=== PATIENT | female | born 1945 | race Caucasian/White ===

== ENCOUNTER 2017-11-29 09:24 | Day surgery (SDC) | payer MEDICARE, BC ==
--- NOTE | 2017-11-25 19:18 | HP ---
PREOPERATIVE HISTORY AND PHYSICAL EXAM: DATE OF ADMISSION/SURGERY: 11/29/17 [facility] ATTENDING SURGEON: Laurence Zimmerman MD * (DICTATED BY ALLYSON DANIEL) PROCEDURE: Open reduction and internal fixation, left wrist. HISTORY OF PRESENT ILLNESS: This is a 71-year-old female, who sustained injury to her left wrist on or around 11/10/17. She fell and landed on her outstretched left wrist. She did not initially get it evaluated. On 11/23/17, she went to [facility] and had an x-ray, which showed a displaced fracture of the distal radius. She has been wearing a Cock-Up wrist splint. She denies any associated numbness or tingling or other injury. After review of x-rays and examination by Dr. Zimmerman, the patient has consented to proceed with surgical intervention in the form of a left wrist open reduction and internal fixation. PAST MEDICAL HISTORY: 1. Hypertension. 2. GERD. 3. History of skin cancer. 4. History of ovarian cancer. 5. History of small bowel obstruction secondary to adhesions. PAST SURGICAL HISTORY: 1. Oophorectomy in 1993. 2. Cholecystectomy in 1993. 3. Bowel resection in 2004. 4. Bowel resection in 2014. 5. Hysterectomy. 6. Excision of skin cancer lesions. CURRENT MEDICATIONS: 1. Clobetasol cream p.r.n. 2. Amlodipine besylate 5 mg daily. 3. Estrace 0.1 mg/g use every day. 4. Irbesartan 300 mg daily. 5. Magnesium oxide 400 mg daily. 6. Omeprazole 20 mg daily. 7. PreviDent 5000 dry mouth 1.1% daily. 8. Tolterodine tartrate ER 4 mg daily. ALLERGIES: No known drug allergies. The patient has sensitivity to ADHESIVE TAPE. FAMILY MEDICAL HISTORY: Hypertension and cancer. 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 She denies tobacco use or recreational drug use. She drinks alcohol on rare occasion. REVIEW OF SYSTEMS: Negative for GI, , other musculoskeletal, integumentary, endocrine, neurologic, hematologic symptoms. Infectious disease is negative for MRSA, hepatitis C, HIV. PHYSICAL EXAMINATION GENERAL: Well-developed, well-nourished, 71-year-old female, in no acute distress. VITAL SIGNS: Height 5 feet 6 inches, weight 158 pounds. Pulse rate 96, blood pressure 162/88. HEENT: Normocephalic, atraumatic. Pupils are equal, round, and reactive to light and accommodation. Extraocular movements are intact. Throat is clear. NECK: Supple. No palpable lymph nodes. PULMONARY: Lungs are clear to auscultation bilaterally. No wheezes, rales, or rhonchi. CARDIOVASCULAR: Regular rate and rhythm. S1, S2. No murmurs, rubs, or gallops. No edema. ABDOMEN: Positive bowel sounds, soft, nontender. MUSCULOSKELETAL: On exam of the patient's left wrist, there is an obvious deformity with apex volar angulation of the distal radius. There is tenderness to the distal ulna. She can make a closed fist and fully extend her fingers. No visible swelling or ecchymosis. Skin is intact. Neurovascular function is intact. NEUROLOGICAL: Alert and oriented x3. Cranial nerves II through XII are intact. Sensation is intact to light touch. DIAGNOSTIC STUDIES: X-rays of the left wrist, AP, lateral and oblique show displaced fracture of the distal radius. IMPRESSION: Left distal radius fracture, which is angulated. PLAN: The patient is scheduled for an open reduction and internal fixation of the left wrist with Dr. Zimmerman, on 11/29/17. She will return to the office 10 days postop for followup and suture removal. A prescription for [place] was e- scribed to the patient's pharmacy for postoperative pain management. ALLYSON DANIEL [id number]/[facility] #: [id number] SHERINE
[~2017-11-29 09:24] MED LIST: Buffered Lidocaine 0.9% SYRIN* 5 ML/SYR SYRINGE INTRADERM ONE
[2017-11-29] MEDS ORDERED: ceFAZolin 2 GM PREMIX in ORs 2 GM/50 ML BAG IVPB ONE (09:37)
[2017-11-29] MEDS ORDERED: Scopolamine 1.5 mg* PATCH ONE (12:06)
[2017-11-29] MEDS ORDERED: Midazolam* 1 MG/ML 2 ML VIAL (2 MG) ONE (12:19)
[2017-11-29] MEDS ORDERED: Bupivacaine 0.5% W/EPI SDV* 30 ML VIAL ONE (12:19)
[2017-11-29] MEDS ORDERED: fentaNYL* 50 MCG/ML 2 ML VIAL (100 MCG VIAL) ONE (12:19)
[2017-11-29] MEDS ORDERED: Propofol* 10 MG/ML 20 ML BTL IV PUSH ONE (12:48)
[2017-11-29] MEDS ORDERED: Dexamethasone IV* 4 MG/ML 1 ML (4 MG) ONE (12:48)
[2017-11-29] MEDS ORDERED: Lidocaine 2% PF * 5 ML VIAL ONE (12:48)
[2017-11-29] MEDS ORDERED: Ondansetron INJ* 2 MG/ML VIAL ONE (12:48)
[2017-11-29 14:42] VITALS: BP 132/55
--- NOTE | 2017-11-30 03:00 | OP ---
DATE OF OPERATION: 11/29/17 [facility] DATE OF : 41 SURGEON: Laurence Zimmerman MD TOLL OPERATOR: ALLYSON Murrieta ANESTHESIA: General plus block. PRE-OP DIAGNOSIS: Left distal radius fracture, intraarticular. POST-OP DIAGNOSIS: Left distal radius fracture, intraarticular. OPERATIVE PROCEDURE: Open reduction internal fixation, left distal radius fracture. ESTIMATED BLOOD LOSS: Zero. TOURNIQUET TIME: About 45 minutes. INDICATIONS FOR PROCEDURE: Ness is a 71-year-old woman who fell and injured her left wrist. X-ray shows a very distal radius fracture, which is intraarticular at the distal radial ulnar joint. It is angulated and displaced and she presents for ORIF of the left distal radius. DESCRIPTION OF PROCEDURE: The patient was brought to the operating room, was given a block plus general anesthetic. Skin of her left upper extremity was prepped and draped in the usual sterile fashion. The hand and forearm were exsanguinated and the tourniquet elevated to 250 mmHg. A longitudinal incision was made over the FCR tendon. We dissected sharply through the superficial and deep portion of the FCR tendon sheath. The FPL muscle and tendon were retracted. Then, the pronator quadratus was incised and subperiosteally dissected off of the distal radius fracture fragments. The brachioradialis was released and then the fracture which had started to heal was manipulated and with a freer elevator reduced anatomically. He was secured with four distal and three proximal screws with a VA locking distal radius plate with the two intraarticular segments secured with the distal screws. The position of the hardware and fracture fragments were checked from the C-arm in the AP and lateral views and found to be satisfactory. The wound was irrigated. The pronator quadratus was repaired over the plate with 2-0 Vicryl suture. The FCR tendon sheath was repaired with 2-0 Vicryl suture and then the skin edges reapproximated with 4-0 nylon suture. The wound was dressed with Xeroform, 4x4 , Webril, and an Orthoplast splint on the volar aspect in slight flexion. The patient tolerated the procedure well and was brought to the recovery room in good condition. [id number]/[facility] #: [id number] [facility]
== END 2017-11-29 15:02 | disposition home or self-care (01) ==
LOC: OREAST 09:24
PROVIDERS: ATTEND Orthopaedic Surgery
DX: S52.572A Other intraarticular fracture of lower end of left radius, initial encounter for closed fracture (principal); G89.18 Other acute postprocedural pain; W19.XXXA Unspecified fall, initial encounter; Y92.9 Unspecified place or not applicable; I10 Essential (primary) hypertension; K21.9 Gastro-esophageal reflux disease without esophagitis; Z85.828 Personal history of other malignant neoplasm of skin; Z85.43 Personal history of malignant neoplasm of ovary
CPT/HCPCS: A9270-GY; C1713; C1776; J0690; J1100; J2250; J2405; J2704; J3010

== ENCOUNTER 2018-10-07 11:38 | Emergency (ER) | payer MEDICARE, BC ==
[2018-10-07 12:12] VITALS: BP 153/80
--- NOTE | 2018-10-07 12:32 | UC ---
UC General HPI - HPI Summary HPI Summary: 72-year-old woman comes in with chief complaint of feeling ill ever since September 19, 2018. She's had some blood work done with her primary care doctor. Been having intermittent upper abdominal pain. 3 days ago she had some nausea and vomiting and upper abdominal pain. It was better yesterday. Overnight she had upper abdominal pain and vomiting. Patient does have a history of small bowel obstructions she denies that this feels like a small bowel obstruction she has no abdominal pain at this time she is not nauseous at this time. She spoke with her primary care doctor on-call and the recommended repeating blood work that was done in the past CRP CBC CMP and to check for acute hepatitis. Patient is status post cholecystectomy in the past. - History of Current Complaint Chief Complaint: UCGeneralIllness Stated Complaint: NAUSEA VOMITING Time Seen by Provider: 10/07/18 12:20 Pain Intensity: 0 - Allergy/Home Medications Allergies/Adverse Reactions: Allergies Allergy/AdvReac Type Severity Reaction Status Date / Time belladonna alkaloids Allergy Mild Hives Verified 10/07/18 12:13 ADHESIVE TAPES Allergy Mild CONTACT Uncoded 10/07/18 12:13 DERMATITIS PMH/Surg Hx/FS Hx/Imm Hx Previously Healthy: Yes Cardiovascular History: Hypertension GI/ History: Gastroesophageal Reflux - Surgical History Surgical History: Yes Surgery Procedure, Year, and Place: HYSTERECTOMY, CHOLECYSTECOMY ,10 inches of sm. intestine removed-, BOWEL RESECTION 2004 - Family History Known Family History: Positive: Non-Contributory - Social History Alcohol Use: Rare Substance Use Type: None Smoking Status (MU): Never Smoked Tobacco Have You Smoked in the Last Year: No - Immunization History Most Recent Influenza Vaccination: 2013 Most Recent Tetanus Shot: 2009 Most Recent Pneumonia Vaccination: 2012 Review of Systems All Other Systems Reviewed And Are Negative: Yes Constitutional: Positive: Other - SEE HPI Skin: Positive: Negative Eyes: Positive: Negative ENT: Positive: Negative Respiratory: Positive: Negative Cardiovascular: Positive: Negative Gastrointestinal: Positive: Abdominal Pain, Vomiting, Nausea, Other - SEE HPI Genitourinary: Positive: Negative Motor: Positive: Negative Neurovascular: Positive: Negative Musculoskeletal: Positive: Negative Neurological: Positive: Negative Psychological: Positive: Negative Is Patient Immunocompromised?: No Physical Exam Triage Information Reviewed: Yes Appearance: Well-Appearing, No Pain Distress, Well-Nourished Vital Signs: Initial Vital Signs Temp 98 F 10/07/18 12:10 Pulse 100 10/07/18 12:10 Resp 20 10/07/18 12:10 BP 153/80 10/07/18 12:10 Pulse Ox 100 10/07/18 12:10 Vital Signs Reviewed: Yes Eye Exam: Normal Eyes: Positive: Conjunctiva Clear ENT: Negative: Muffled voice, Hoarse voice Neck: Positive: Supple Respiratory: Positive: Lungs clear, Normal breath sounds, No respiratory distress Cardiovascular: Positive: RRR Abdomen Description: Positive: Nontender, Soft. Negative: CVA Tenderness (R), CVA Tenderness (L) Bowel Sounds: Positive: Present Musculoskeletal: Positive: Strength Intact, ROM Intact Neurological: Positive: Alert Psychological: Positive: Age Appropriate Behavior Skin Exam: Normal Course/Dx - Course Course Of Treatment: At this time the patient has no abdominal pain her abdomen was nontender to palpation. At this time she has no signs of a bowel obstruction. She is not nauseous at this time. Patient reports that the primary care physician on-call recommended repeating prior blood work of a CRP CBC CMP and 2 check for hepatitis. All the blood work was drawn. Because the patient's asymptomatic at this time the plan will be to follow-up with her primary care doctor. I did let the patient know if she got worse with pain fever vomiting abdominal pain she needs to go the emergency department further evaluation and care. - Diagnoses Provider Diagnosis: Abdominal pain, Nausea & vomiting Discharge ED - Sign-Out/Discharge Documenting (check all that apply): Patient Departure All imaging exams completed and their final reports reviewed: No Studies - Discharge Plan Condition: Stable Disposition: HOME Prescriptions: Ondansetron ODT TAB* [Zofran 4 MG Odt TAB*] 4 mg PO Q6H PRN #15 tab.odt PRN Reason: Nausea Patient Education Materials: Acute Nausea and Vomiting (ED), Abdominal Pain (ED ) Referrals: Roya Fields MD [Primary Care Provider] - Additional Instructions: FOLLOW UP WITH YOUR DOCTOR IF NOT COMPLETELY IMPROVED. GO TO THE EMERGENCY DEPARTMENT IF YOUR CONDITION WORSENS; PAIN, FEVER, VOMITING , YOU FEEL ILL OR ANY QUESTIONS OR CONCERNS. - Billing Disposition and Condition Condition: STABLE Disposition: Home
[2018-10-07 14:38] LABS: ABS Lymphocytes 1.4 10^3/ul (1.0-4.8); ABS Monocytes 0.8 10^3/ul (0-0.8); ABS Neutrophils 9.3 10^3/ul (1.5-7.7); Eosinophil % 0.3 %; Hematocrit 37 % (35-47); Lymphocyte % 12.1 %; Mean Corpuscular HGB Conc 33 g/dL (31-36); Mean Corpuscular Hemoglobin 27 pg (27-31); Mean Corpuscular Volume 85 fL (80-97); Mean Platelet Volume 8.8 fL (7.4-10.4); Platelet Count 480 10^3/uL (150-450); Red Blood Count 4.37 10^6 /uL (3.70-4.87); Red Cell Distribution Width 13 % (10-15); White Blood Count 11.5 10^3/uL (3.5-10.8)
[2018-10-07 15:06] LABS: Albumin 3.7 g/dL (3.2-5.2); Calcium 9.2 mg/dL (8.6-10.3); Potassium 3.8 mmol/L (3.5-5.0); Total Bilirubin 0.4 mg/dL (0.2-1.0)
[2018-10-07 15:12] LABS: Albumin/Globulin Ratio 1.4 (1-3); BUN/Creatinine Ratio 27.5 (8-20); C Reactive Protein 16.82 mg/L (<8.01); EGFR African American 84.8 (>60); EGFR Non-African American 70.1 (>60); Globulin 2.6 g/dL (2-4); Total Protein 6.3 g/dL (6.4-8.9)
[2018-10-07 15:16] LABS: Hepatitis B Surface Antigen Negative (Negative)
[2018-10-07 15:34] LABS: Hepatitis C Antibody Negative (Negative)
--- NOTE | 2018-10-08 07:19 | UC ---
- Progress Note Progress Note: CBC with dif reviewed CMP reviewed mild elevation CRP at 16. Down from 29 on 09/28/18 Hepatitis panel neg and non reactive Pt to follow up with PCP per note No change blanca 10/08/18 Course/Dx - Diagnoses Provider Diagnoses: Abdominal pain, Nausea & vomiting Discharge ED - Sign-Out/Discharge Documenting (check all that apply): Post-Discharge Follow Up All imaging exams completed and their final reports reviewed: No Studies - Discharge Plan Condition: Stable Disposition: HOME Prescriptions: Ondansetron ODT TAB* [Zofran 4 MG Odt TAB*] 4 mg PO Q6H PRN #15 tab.odt PRN Reason: Nausea Patient Education Materials: Acute Nausea and Vomiting (ED), Abdominal Pain (ED ) Referrals: Roya Fields MD [Primary Care Provider] - Additional Instructions: FOLLOW UP WITH YOUR DOCTOR IF NOT COMPLETELY IMPROVED. GO TO THE EMERGENCY DEPARTMENT IF YOUR CONDITION WORSENS; PAIN, FEVER, VOMITING , YOU FEEL ILL OR ANY QUESTIONS OR CONCERNS. - Billing Disposition and Condition Condition: STABLE Disposition: Home
== END 2018-10-07 12:45 | disposition home or self-care (01) ==
LOC: UCEAST 11:38
DX: R11.2 Nausea with vomiting, unspecified (principal); R10.10 Upper abdominal pain, unspecified; I10 Essential (primary) hypertension; K21.9 Gastro-esophageal reflux disease without esophagitis
CPT/HCPCS: 36415; 80053; 80074; 85025; 86140; 99212; G0463

== ENCOUNTER 2018-10-10 13:04 | Inpatient (IN) | payer MEDICARE, BC ==
[2018-10-10 14:16] LABS: ABS Basophils 0.1 10^3/ul (0-0.2); ABS Lymphocytes 0.6 10^3/ul (1.0-4.8); ABS Monocytes 0.4 10^3/ul (0-0.8); ABS Neutrophils 14.2 10^3/ul (1.5-7.7); Hematocrit 38 % (35-47); Hemoglobin 12.5 g/dL (12.0-16.0); Lymphocyte % 3.8 %; Mean Corpuscular HGB Conc 33 g/dL (31-36); Mean Corpuscular Hemoglobin 28 pg (27-31); Mean Corpuscular Volume 84 fL (80-97); Mean Platelet Volume 8.3 fL (7.4-10.4); Platelet Count 463 10^3/uL (150-450); Red Blood Count 4.51 10^6 /uL (3.70-4.87); Red Cell Distribution Width 14 % (10-15); White Blood Count 15.4 10^3/uL (3.5-10.8)
[2018-10-10] MEDS ORDERED: NS 0.9% 1000 ML** 1,000 ML IV ONE (15:22)
--- NOTE | 2018-10-10 15:28 | ED ---
Abdominal Pain/Female - HPI Summary HPI Summary: Patient is a 72-year-old female who presents emergency department bowel obstruction seen in outpatient CT scan done today. Patient has a history of numerous surgeries and multiple bowel obstructions in the past. Patient states she's had surgery twice to lyse adhesions. Pt. notes that surgery was concerned in the past pt. may need to be seen at a tertiary facility if she has another bowel obstruction. Patient states she's been having abdominal pain and vomiting over the last week. She had an outpatient CT scan today which showed small bowel obstruction and new liver mass likely metastatic per radiology. Patient denies fever, chills, chest pain, shortness of breath. Symptoms are moderate in severity. Patient believes her last bowel movement was 3 days ago and is unaware if she is still passing flatus. No current modifying factors. - History of Current Complaint Chief Complaint: EDGeneral Stated Complaint: POSITIVE BOWEL OBSTRUCTION Time Seen by Provider: 10/10/18 13:38 Hx Obtained From: Patient, Family/Feed Grinder Pain Intensity: 0 Allergies/Adverse Reactions: Allergies Allergy/AdvReac Type Severity Reaction Status Date / Time belladonna alkaloids Allergy Mild Hives Verified 10/10/18 09:36 ADHESIVE TAPES Allergy Mild CONTACT Uncoded 10/10/18 09:36 DERMATITIS Home Medications: Home Medications L.acidoph,Paracasei, B.lactis [Probiotic] 1 each PO DAILY 10/10/18 [History Confirmed 10/10/18] Magnesium Oxide TAB* [MagOx 400 TAB*] 400 mg PO DAILY 10/10/18 [History Confirmed 10/10/18] [place]-3 Fatty Acids (Nf) [Fish Oil (NF)] 1,000 mg PO DAILY 10/10/18 [History Confirmed 10/10/18] PMH/Surg Hx/FS Hx/Imm Hx Previously Healthy: Yes Endocrine/Hematology History: Denies: Hx Diabetes Cardiovascular History: Reports: Hx Hypertension - ON MEDICATION FOR Denies: Hx Pacemaker/ICD GI History: Reports: Hx Gastroesophageal Reflux Disease - ON MEDICATION FOR, Hx Irritable Bowel, Other GI Disorders - HX OF SMALL INTESTINE BACTERIAL OVERGROWTH -TREATED WITH ANITBIOTIC-DIARRHEA History: Denies: Hx Dialysis, Hx Renal Disease - abnormal gfr Musculoskeletal History: Reports: Hx Arthritis - BACK AND HANDS, Hx Tendonitis - OCCASIONALLY IN ARMS Denies: Hx Osteoporosis Sensory History: Reports: Hx Cataracts - BILATERAL, Hx Contacts or Glasses - GLASSES, Other Sensory Impairments Denies: Hx Eye Injury, Hx Eye Prosthesis, Hx Glaucoma, Hx Legally Blind, Hx Macular Degeneration, Hx Vision Problem, Hx Deafness, Hx Hearing Aid, Hx Hearing Problem Opthamlomology History: Reports: Hx Cataracts - BILATERAL, Hx Contacts or Glasses - GLASSES, Other Sensory Impairments Denies: Hx Eye Injury, Hx Eye Prosthesis, Hx Glaucoma, Hx Legally Blind, Hx Macular Degeneration, Hx Vision Problem Neurological History: Reports: Hx Migraine - RARE-TYLENOL- STATES NOW USUALLY JUST AN AURA- LAST ONLY ~20 MIN Psychiatric History: Denies: Hx Panic Disorder - Cancer History Cancer Type, Location and Year: ovarian, slow groing non invasive Hx Chemotherapy: No Hx Radiation Therapy: No - Surgical History Surgery Procedure, Year, and Place: HYSTERECTOMY, CHOLECYSTECOMY ,10 inches of sm. intestine removed-, BOWEL RESECTION 2004 Hx Anesthesia Reactions: No Infectious Disease History: No Infectious Disease History: Denies: Traveled Outside the [place] in Last 30 Days - Family History Known Family History: Positive: Non-Contributory - Social History Occupation: Retired Lives: With Family Alcohol Use: Rare Substance Use Type: Reports: None Smoking Status (MU): Never Smoked Tobacco Have You Smoked in the Last Year: No Review of Systems Constitutional: Negative Negative: Fever Cardiovascular: Negative Respiratory: Negative Positive: Abdominal Pain, Vomiting, Nausea Genitourinary: Negative Neurological: Negative All Other Systems Reviewed And Are Negative: Yes Physical Exam Triage Information Reviewed: Yes Vital Signs On Initial Exam: Initial Vitals Temp Pulse Resp BP Pulse Ox 97.6 F 79 18 162/90 96 10/10/18 13:10 10/10/18 13:10 10/10/18 13:10 10/10/18 13:10 10/10/18 13:10 Vital Signs Reviewed: Yes Appearance: Positive: Well-Appearing - Pt. sitting up in bed in NAD. Family member present. Skin: Positive: Warm, Dry Head/Face: Positive: Normal Head/Face Inspection Eyes: Positive: Normal, EOMI Neck: Positive: Supple Respiratory/Lung Sounds: Positive: Clear to Auscultation, Breath Sounds Present Cardiovascular: Positive: Normal, RRR Diagnostics - Vital Signs Vital Signs Temp Pulse Resp BP Pulse Ox 10/10/18 14:42 82 134/75 96 10/10/18 14:12 79 138/72 96 10/10/18 14:00 79 96 10/10/18 13:42 82 136/72 95 10/10/18 13:13 84 97 10/10/18 13:12 86 162/90 97 10/10/18 13:10 97.6 F 79 18 162/90 96 - Laboratory Lab Results: Lab Results 10/10/18 Range/Units 14:02 WBC 15.4 H (3.5-10.8) 10^3/uL RBC 4.51 (3.70-4.87) 10^6 /uL Hgb 12.5 (12.0-16.0) g/dL Hct 38 (35-47) % MCV 84 (80-97) fL MCH 28 (27-31) pg MCHC 33 (31-36) g/dL RDW 14 (10-15) % Plt Count 463 H (150-450) 10^3/uL MPV 8.3 (7.4-10.4) fL Neut % (Auto) 92.7 % Lymph % (Auto) 3.8 % [place] % (Auto) 2.6 % Eos % (Auto) 0.0 % Baso % (Auto) 0.9 % Absolute Neuts (auto) 14.2 H (1.5-7.7) 10^3/ul Absolute Lymphs (auto) 0.6 L (1.0-4.8) 10^3/ul Absolute Monos (auto) 0.4 (0-0.8) 10^3/ul Absolute Eos (auto) 0.0 (0-0.6) 10^3/ul Absolute Basos (auto) 0.1 (0-0.2) 10^3/ul Absolute Nucleated RBC 0.0 10^3/ul Nucleated RBC % 0.0 Result Diagrams: 10/10/18 14:02 10/10/18 14:02 Lab Statement: Any lab studies that have been ordered have been reviewed, and results considered in the medical decision making process. Abdominal Pain Fem Course/Dx - Course Course Of Treatment: Pt. presenting with SBO seen on outpt. CT scan. She is afebrile with stable VS. Pt. denies need for antiemetics or pain medication. CT per radiology: IMPRESSION: Large mass in the left lobe of liver suspicious for metastatic disease. Dilated stomach and proximal small bowel consistent with small bowel obstruction with. suggestion of a zone of transition at the anastomosis in the pelvis from prior surgery. Serosal lesions are not excluded. Right adrenal lesion is unchanged from previous exam. Labs shows leukocytosis. Case discussed with Dr. Holcomb who recommends starting with conservative tx with bowel rest and IV hydration. Surgery aware of case and can be consulted if needed. Case discussed with Dr. Velez and she accepts pt. to her service. - Diagnoses Differential Diagnosis: Positive: Bowel Obstruction Provider Diagnoses: Small bowel obstruction, Liver mass Discharge ED - Sign-Out/Discharge Documenting (check all that apply): Patient Departure Patient Received Moderate/Deep Sedation with Procedure: No - Discharge Plan Condition: Stable Disposition: ADMITTED TO [facility] Referrals: Roya Fields MD [Primary Care Provider] - - Billing Disposition and Condition Condition: STABLE Disposition: Admitted to [facility]
[2018-10-10 15:30] LABS: Albumin 3.7 g/dL (3.2-5.2); Albumin/Globulin Ratio 1.3 (1-3); BUN/Creatinine Ratio 30.8 (8-20); C Reactive Protein 9.1 mg/L (<8.01); EGFR African American 87.4 (>60); EGFR Non-African American 72.2 (>60); Globulin 2.8 g/dL (2-4); Magnesium 1.8 mg/dL (1.9-2.7); Potassium 3.6 mmol/L (3.5-5.0); Total Bilirubin 0.3 mg/dL (0.2-1.0); Total Protein 6.5 g/dL (6.4-8.9)
[2018-10-10] MEDS ORDERED: Lidocaine 2% VISCOUS* 15 ML UDC SWISH SPIT ONE (16:57)
[2018-10-10] MEDS ORDERED: hydrALAZINE IV* 20 MG/ML VIAL IV SLOW PU PRN (17:20)
[2018-10-10 17:21] LABS: Urine Appearance Clear; Urine Bacteria Absent (Absent); Urine Bilirubin Negative (Negative); Urine Blood Negative (Negative); Urine Color Yellow; Urine Glucose Negative (Negative); Urine Ketones 2+ (Negative); Urine Nitrite Negative (Negative); Urine Protein 1+(30 mg/dL) (Negative); Urine Red Blood Cell Absent (Absent); Urine Specific Gravity > 1.060 (1.010-1.030); Urine Squamous Epithelial Cell Present (Absent); Urine Urobilinogen Negative (Negative); Urine White Blood Cell Absent (Absent)
--- NOTE | 2018-10-10 19:30 | HP ---
CC: Dr. Fields* [facility] MEDICINE HISTORY AND PHYSICAL: DATE OF ADMISSION: 10/10/18 PRIMARY CARE PHYSICIAN: Dr. Fields. ATTENDING PHYSICIAN: Dr. Aruna Velez* (dictation provided by Di Diallo NP). CHIEF COMPLAINT: Nausea, vomiting, and abdominal pain. HISTORY OF PRESENT ILLNESS: Ms. Diaz is a 72-year-old female with a past medical history of ovarian/bowel cancer cancer (serous psammoma carcinoma) and multiple small bowel obstructions, status post resections and lysis of adhesions , who presents today to the hospital with concern for abdominal pain, nausea, and vomiting. Ms. Diza states that she was in her normal state of health up until 09/19/18, at which time she developed a low-grade fever with loss of appetite and energy. She recovered over the next week and then felt essentially back to baseline except for having some upper abdominal discomfort. She thought perhaps this was related to IBS, although her symptoms had been well controlled for quite some time. She followed up with her primary care physician, Dr. Fields about a week and a half ago after having sudden onset of vomiting. She had labs drawn at that time on 09/28/18, which showed no significant abnormality. She continued to have some intermittent vomiting mixed with days where she was feeling much better. On Tuesday, she again had more significant vomiting and was feeling unwell; therefore, she spoke to Dr. Novoa, who is a partner with her primary care physician and ultimately she ended up having labs drawn again on 10/07/18. Again, these showed no significant abnormality. The plan over the weekend was for the patient to have a CT abdomen and pelvis arranged for Tuesday as Tuesday was a holiday. The patient had the scan this morning and unfortunately it revealed that she has a large liver mass suspected to be a metastasis as well as a small bowel obstruction at the site of her anastomosis. She was therefore sent to the emergency room for evaluation. In the emergency room, Ms. Diaz had labs which showed white blood cell count elevated to 15.4; however, her CRP is only 9.10. Her BUN and creatinine are essentially normal. Urine shows no evidence of infection. The patient is nauseous and vomiting at times, but is otherwise resting comfortably. PAST MEDICAL HISTORY: 1. History of small bowel obstructions with lysis of adhesions. 2. 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 Hypertension. 3. GERD. 4. History of IBS. 5. SIBO. PAST SURGICAL HISTORY: History of total hysterectomy, bilateral salpingo- oophorectomy in 1993; history of bowel resection and lysis of adhesions in 2004 with finding of a serous psammoma carcinoma, followed by Dr. Holcomb. MEDICATIONS: 1. Amlodipine 7.5 mg p.o. q.a.m. 2. Irbesartan 300 mg p.o. q.a.m. 3. Probiotic 1 each p.o. daily. 4. Magnesium oxide 400 mg p.o. daily. 5. Multivitamin with minerals 1 each p.o. q.a.m. 6. [place]-3 krill oil tabs 1000 mg p.o. daily. 7. Omeprazole 20 to 40 mg p.o. q.a.m. 8. Tolterodine 4 mg p.o. q.a.m. ALLERGIES: BELLADONNA and ADHESIVE TAPES. FAMILY HISTORY: The patient's mother related to ovarian cancer. Father related to lung cancer. SOCIAL HISTORY: No report of alcohol, tobacco, or drug use. The patient states that her nephews Hi and Raudel would be her healthcare proxies. REVIEW OF SYSTEMS: A 14-point review of systems was completed with Ms. Diaz and all those not mentioned above were negative. PHYSICAL EXAMINATION GENERAL: Ms. Diaz is lying in the bed with family at the bedside. She is in no acute distress. VITAL SIGNS: Temperature 97.8, pulse rate 89, respiratory rate 18, O2 saturation 97% on room air, blood pressure 171/79. LUNGS: Clear to auscultation bilaterally with no accessory muscle use and good aeration. HEART: S1, S2. No murmur, rub or gallop, and regular. ABDOMEN: Soft. There is some mild tenderness in the right upper quadrant. There is no rebound or guarding. Bowel sounds are positive. Not able to appreciate hepatomegaly or splenomegaly on exam. EXTREMITIES: No cyanosis or edema. NEURO: She is alert. She is oriented x3. She moves all extremities equally. There is no facial asymmetry or focal weakness. Extraocular movements are intact. SKIN: Intact. DIAGNOSTIC STUDIES/LAB DATA: WBC 15.4, hemoglobin 12.5, hematocrit 38, platelet count 463. Sodium 137, potassium 3.6, chloride 100, serum bicarbonate 24, BUN 24, creatinine 0.78, glucose 112. CRP 9.10. Urine shows no evidence of infection. CT abdomen and pelvis is as follows: Large mass in the left lobe of the liver suspicious for metastatic disease measuring 4.8 cm in length x 8.3 cm in width and 3.4 cm in AP dimension, dilated stomach and proximal small bowel consistent with small bowel obstruction with suggested zone of transition at the anastomosis in the pelvis from prior surgery. Serosal lesions are not excluded. ASSESSMENT AND PLAN: Ms. Diaz is a 72-year-old female with a past medical history of serous psammoma carcinoma, status post bowel resection with a previous history of hysterectomy and bilateral salpingo-oophorectomy in 1993, who presents to the hospital today with concern for a small bowel obstruction and a new liver mass. Our plans are for observation in the hospital for the followin. Small bowel obstruction: It appears that the patient has a zone of transition at a previous site of anastomosis. The surgeons have been consulted , and Dr. Damon and his team will be seeing the patient. At this time, her exam is benign other than she has persistent nausea and vomiting. We have discussed with her the potential use of an NG tube, but based on her previous experience with that intervention, she has declined today. She is aware that this is something we would recommend given her nausea and vomiting, but she prefers to avoid that if possible. In the meantime, she will have Zofran available p.r.n. I suspect that her obstruction is related to her previous history of similar obstructions with adhesions and surgeries. She will be n.p.o. She will have IV fluids. 2. Liver mass. I have left a message for Dr. Holcomb, who has been asked to review the case and offer recommendations tomorrow. The patient had a CT abdomen in December of this past year, which did not demonstrate any lesion in the liver. She denies any pain at this point but has had pain in recent weeks. Her liver enzymes are normal. Other etiologies could be liver abscess, but she shows no significant inflammatory markers, she is afebrile and though her white blood cell count is elevated, her CRP is normal. Anticipate the patient would need a biopsy, but question whether or not that would be done during this hospitalization or outpatient and this can be reviewed with Dr. Holcomb. 3. Hypertension. The patient's blood pressure has been elevated in the ED. She will have hydralazine available p.r.n. and depending on clinical course, we can add other agents as need be while she is n.p.o. We will be holding her irbesartan and amlodipine. 4. Gastroesophageal reflux disease. Hold omeprazole. She will have pantoprazole available IV. 5. Code status is full code. 6. Leukocytosis. I suspect this is secondary to inflammation related to her small bowel obstruction given that her CRP is normal and she is afebrile, but we will recheck labs in the a.m. 7. Disposition: To the medical floor. TIME SPENT: Approximately 60 minutes was spent on the admission of this patient , more than half the time spent with her at the bedside reviewing the events leading up to this hospitalization, performing the physical examination, and reviewing the plan of care. DI DIALLO NP [id number]/[facility] #: [id number] SHERINE
[2018-10-10] MEDS: NS 0.9% 1000 ML** 1,000 ML IV SCH (19:44)
[2018-10-10] MEDS: Heparin VIAL(*) 5000 UNITS/ML VIAL (FIVE THOUSAND) SUBCUT SCH (22:03)
[2018-10-11] MEDS: NS 0.9% 1000 ML** 1,000 ML IV SCH ×3 (03:35→21:39)
[2018-10-11 05:01] LABS: ABS Eosinophils 0.1 10^3/ul (0-0.6); ABS Lymphocytes 1.6 10^3/ul (1.0-4.8); ABS Neutrophils 12.7 10^3/ul (1.5-7.7); Eosinophil % 0.3 %; Hematocrit 33 % (35-47); Hemoglobin 10.9 g/dL (12.0-16.0); Lymphocyte % 10.4 %; Mean Corpuscular HGB Conc 33 g/dL (31-36); Mean Corpuscular Hemoglobin 27 pg (27-31); Mean Corpuscular Volume 84 fL (80-97); Mean Platelet Volume 8.2 fL (7.4-10.4); Platelet Count 358 10^3/uL (150-450); Red Blood Count 3.98 10^6 /uL (3.70-4.87); Red Cell Distribution Width 13 % (10-15); White Blood Count 15.4 10^3/uL (3.5-10.8)
[2018-10-11] MEDS: Ondansetron INJ* 2 MG/ML VIAL IV PRN ×3 (05:06→22:33)
[2018-10-11 05:15] LABS: BUN/Creatinine Ratio 24.7 (8-20); Calcium 8.4 mg/dL (8.6-10.3); EGFR African American 94.3 (>60); EGFR Non-African American 77.9 (>60); Potassium 3.6 mmol/L (3.5-5.0)
[2018-10-11] MEDS: Heparin VIAL(*) 5000 UNITS/ML VIAL (FIVE THOUSAND) SUBCUT SCH ×3 (05:15→22:35)
[2018-10-11] MEDS: Pantoprazole IV* 40 MG IV SCH (08:55)
--- NOTE | 2018-10-11 12:21 | CONS ---
CC: Dr. Damon at [facility].* SURGICAL CONSULTATION: DATE OF ADMISSION: 10/10/18 DATE OF CONSULT: 10/11/18 ATTENDING PHYSICIAN: Hospitalist Service. LOCATION: This patient was seen at [facility] in room 413 on 10/11/18. PRIMARY CARE PHYSICIAN: Dr. Roya Fields. CHIEF COMPLAINT: Nausea, vomiting, and abdominal pain. HISTORY OF PRESENT ILLNESS: The patient is a 72-year-old female with a past medical history of ovarian and bowel cancer, specifically serous psammoma carcinoma; she has had multiple small bowel obstructions and is status post small bowel resection and lysis of adhesions in 2004 with the finding of the serous psammoma carcinoma at that time and she has been followed by Dr. Holcomb. She reports that she was in her normal state of health until mid September, at which time she developed a low-grade fever with loss of appetite and energy. Over the next week, she started to feel better, but then developed upper abdominal discomfort and had a sudden onset of vomiting. She had labs drawn at that time as ordered by her primary care physician, which showed no significant abnormality. She continued to have intermittent vomiting mixed with days where she was feeling better. On this past Tuesday, she again had more significant vomiting and was feeling unwell and again spoke to her primary care office and ultimately had labs drawn again on , which showed no significant abnormality. The plan was for a CAT scan of the abdomen and pelvis for Tuesday10/10/18. The CAT scan revealed a large liver mass suspected to be a metastasis as well as a small bowel obstruction at the site of her previous anastomosis. In the emergency room, her white blood cell count was elevated at 15.4; however, her CRP was only 9.10. BUN and creatinine were essentially normal and urine showed no evidence of infection. The patient was admitted to the hospitalist service and kept n.p.o.; the patient declined a nasogastric tube. She was maintained on IV fluids and Dr. Holcomb was informed of the patient 's admission. Overnight, she states that she has been feeling better. She has had no further vomiting, she has felt mildly queasy and occasionally used Zofran. She thinks that she passed a little flatus this morning and has been ambulating in the halls. Her white blood cell count again this morning is 15.4. She is afebrile and denies any chills. PAST MEDICAL HISTORY: Small bowel obstructions with lysis of adhesions; serous psammoma carcinoma followed by Dr. Holcomb; hypertension; GERD; irritable bowel syndrome. PAST SURGICAL HISTORY: Total hysterectomy, bilateral salpingo-oophorectomy 1993 , small bowel resection and lysis of adhesions in 2004 with finding of serous psammoma carcinoma. MEDICATIONS: 1. Amlodipine 7.5 mg p.o. daily in the morning. 2. Irbesartan 300 mg p.o. daily in the morning. 3. Probiotic 1 daily. 4. Magnesium oxide 400 mg daily. 5. Multivitamin with minerals 1 tablet daily. 6. [place]-3 krill oil tablets 1000 mg p.o. daily. 7. Omeprazole 20 to 40 mg p.o. daily in the morning. 8. Tolterodine 4 mg p.o. daily in the morning. ALLERGIES: BELLADONNA and ADHESIVE TAPES. FAMILY HISTORY: Mother related to ovarian cancer. Father related to lung cancer. SOCIAL HISTORY: She lives alone; she denies the use of alcohol, tobacco, or substances. REVIEW OF SYSTEMS: Constitutional: Starting in mid September, she developed a low - grade fever associated with fatigue. No current fever or chills. Respiratory : No shortness of breath or chronic cough. Cardiovascular: No anginal chest pain or palpitations. Gastrointestinal: As described in history of present illness. Genitourinary: No dysuria. Endocrine: No diabetes or thyroid disease. Musculoskeletal: Normal strength and tone. Neurologic: No headache or blurred vision or areas of focal weakness or numbness. PHYSICAL EXAM: General: The patient is resting in bed comfortably. She is in no acute distress. Vital Signs: Temperature 98.1, heart rate 80, respiratory rate 18, O2 saturation 97%, blood pressure 129/60. Physical exam was limited to the abdomen. Well healed midline surgical scar; bowel sounds are hyperactive in the lower quadrants. The abdomen is soft and nondistended. There is mild tenderness in the suprapubic region. No guarding or rebound tenderness. No Santillan's sign. No obvious organomegaly or mass effect on exam. IMPRESSION: The patient is a 72-year-old female with findings on the CAT scan of the abdomen and pelvis as follows: Large mass in the left lobe of the liver suspicious for metastatic disease, measuring 4.8 cm x 8.3 cm x 3.4 cm, dilated stomach and proximal small bowel consistent with small bowel obstruction with suggested zone of transition at the anastomosis in the pelvis from prior surgery. At this time, she denies any abdominal pain. She is no longer vomiting and is passing a small amount of flatus. She states that Dr. Holcomb saw her last evening and advises an ultrasound-guided needle biopsy of the liver mass. She will continue to be n.p.o. and receive IV fluids. In terms of followup on the small bowel obstruction, Dr. Damon stated that if surgery is required she would need to be transferred. I will update Dr. Damon and discuss the case with the hospitalist who is seeing the patient today. TIME SPENT: Approximately 60 minutes, more than half that time spent at the bedside reviewing the events leading up to this hospitalization, performing the physical examination and reviewing the plan of care. JUAN TOMLINSON NP [id number]/[facility] #: [id number] MTDAurelia
--- NOTE | 2018-10-11 14:43 | PN ---
Subjective Date of Service: 10/11/18 Interval History: Patient is feeling better. Patient passed flatus this AM. Patient has been ambulating. Patient has persistent mild abdominal pain. Patient denies CP, SOB, dizziness, dysuria, or other pain. Family History: Unchanged from Admission Social History: Unchanged from Admission Past Medical History: Unchanged from Admission Objective Active Medications: Heparin Sodium (Porcine) (Heparin Vial(*)) 5,000 units SUBCUT Q8HR [facility] Last Admin: 10/11/18 05:15 Dose: 5,000 units Hydralazine HCl (Apresoline Iv*) 5 mg IV SLOW PU Q6H PRN PRN Reason: SBP>180 Sodium Chloride (Ns 0.9% 1000 Ml) 1,000 mls @ 125 mls/hr IV PER RATE [facility] Last Admin: 10/11/18 11:35 Dose: 125 mls/hr Ondansetron HCl (Zofran Inj*) 4 mg IV Q4H PRN PRN Reason: NAUSEA/VOMITING Last Admin: 10/11/18 05:06 Dose: 4 mg Pantoprazole Sodium (Protonix Iv*) 40 mg IV DAILY [facility] Last Admin: 10/11/18 08:55 Dose: 40 mg Vital Signs - 8 hr 10/11/18 10/11/18 10/11/18 07:15 11:15 14:14 Temperature 98.1 F 98.7 F 98.7 F Pulse Rate 81 74 77 Respiratory 18 20 19 Rate Blood Pressure 129/60 133/58 159/65 (mmHg) O2 Sat by Pulse 97 96 97 Oximetry Oxygen Devices in Use Now: None Appearance: Patient is a 72yo female who appears stated age and is sitting in the bed in [facility]. Eyes: No Scleral Icterus, PERRLA Ears/Nose/Mouth/Throat: NL Teeth, Lips, Gums, Clear Oropharnyx, Mucous Membranes Moist Neck: NL Appearance and Movements; NL JVP, Trachea Midline Respiratory: Symmetrical Chest Expansion and Respiratory Effort, Clear to Auscultation Cardiovascular: NL Sounds; No Murmurs; No JVD, RRR, No Edema Abdominal: No Hepatosplenomegaly, - - Hypoactive BS, No tenderness. Lymphatic: No Cervical Adenopathy Extremities: No Edema, No Clubbing, Cyanosis Skin: No Rash or Ulcers, No Nodules or Sclerosis Neurological: Alert and Oriented x 3, NL Sensation, NL Muscle Strength and Tone , - - CN II-XII intact. Result Diagrams: 10/11/18 04:38 10/11/18 04:38 Additional Lab and Data: Lab Results Assess/Plan/Problems-Billing Assessment: Patient is a 72yo female with a PMH for ovarian tumor, SBO, HTN, here with recurrent SBO. Patient is passing gas and improving. - Patient Problems (1) SBO (small bowel obstruction) Current Visit: No Status: Acute Code(s): K56.69 - OTHER INTESTINAL OBSTRUCTION * DO NOT USE * SNOMED Code(s): 077078643 Comment: - Improving, conservative management - Still having nausea. Do not advance diet yet - Appreciate Surgical consult - Fluids and zofran. (2) Liver mass Current Visit: Yes Status: Acute Code(s): R16.0 - HEPATOMEGALY, NOT ELSEWHERE CLASSIFIED SNOMED Code(s): 509850034 Comment: - New diagnosis, possible metastatic disease, biopsy pending - History rare ovarian tumor. - Appreciate Oncology input. (3) GERD (gastroesophageal reflux disease) Current Visit: No Status: Acute Code(s): K21.9 - GASTRO-ESOPHAGEAL REFLUX DISEASE WITHOUT ESOPHAGITIS SNOMED Code(s): 164426349 Comment: - Continue pantoprazole IV while NPO (4) Hypertension Current Visit: No Status: Acute Code(s): I10 - ESSENTIAL (PRIMARY) HYPERTENSION SNOMED Code(s): 49370091 Comment: - PRN hydralazine while NPO - Generally elevated BP, resume amlodipine when able. (5) DVT prophylaxis Current Visit: No Status: Acute Code(s): IDP4985 - SNOMED Code(s): 219319650 Comment: - Heparin SQ (6) Full code status Current Visit: No Status: Acute Code(s): Z78.9 - OTHER SPECIFIED HEALTH STATUS SNOMED Code(s): 012736366
[2018-10-12] MEDS: Ondansetron INJ* 2 MG/ML VIAL IV PRN (03:24)
[2018-10-12] MEDS ORDERED: Metoclopramide IV* 5 MG/ML 2 ML VIAL IV PRN (05:56)
[2018-10-12] MEDS: Heparin VIAL(*) 5000 UNITS/ML VIAL (FIVE THOUSAND) SUBCUT SCH ×3 (07:19→22:33)
[2018-10-12 07:23] LABS: ABS Lymphocytes 1.3 10^3/ul (1.0-4.8); ABS Monocytes 0.7 10^3/ul (0-0.8); ABS Neutrophils 10.7 10^3/ul (1.5-7.7); Eosinophil % 0.4 %; Hematocrit 33 % (35-47); Mean Corpuscular HGB Conc 33 g/dL (31-36); Mean Corpuscular Hemoglobin 28 pg (27-31); Mean Corpuscular Volume 84 fL (80-97); Mean Platelet Volume 8.5 fL (7.4-10.4); Platelet Count 343 10^3/uL (150-450); Red Blood Count 3.95 10^6 /uL (3.70-4.87); Red Cell Distribution Width 14 % (10-15); White Blood Count 12.7 10^3/uL (3.5-10.8)
[2018-10-12 07:33] LABS: BUN/Creatinine Ratio 19.7 (8-20); Calcium 8.1 mg/dL (8.6-10.3); EGFR African American 105.9 (>60); EGFR Non-African American 87.5 (>60); Magnesium 1.7 mg/dL (1.9-2.7); Potassium 3.5 mmol/L (3.5-5.0)
[2018-10-12] MEDS: Pantoprazole IV* 40 MG IV SCH (09:58)
[2018-10-12] MEDS: NS 0.9% 1000 ML** 1,000 ML IV SCH (14:28)
--- NOTE | 2018-10-12 17:30 | PN ---
Subjective Date of Service: 10/12/18 Interval History: Patient is feeling better today. Patient has been passing gas and had one BM. Patient had nausea overnight, but that is now resolved and she denies abdominal pain. Patient denies F/C, CP, SOB, dysuria, dizziness, or other pain. Family History: Unchanged from Admission Social History: Unchanged from Admission Past Medical History: Unchanged from Admission Objective Active Medications: Heparin Sodium (Porcine) (Heparin Vial(*)) 5,000 units SUBCUT Q8HR [facility] Last Admin: 10/12/18 14:28 Dose: 5,000 units Hydralazine HCl (Apresoline Iv*) 5 mg IV SLOW PU Q6H PRN PRN Reason: SBP>180 Sodium Chloride (Ns 0.9% 1000 Ml) 1,000 mls @ 125 mls/hr IV PER RATE [facility] Last Admin: 10/12/18 14:28 Dose: 125 mls/hr Metoclopramide HCl (Reglan Iv*) 10 mg IV Q6H PRN PRN Reason: NAUSEA/VOMITING Last Admin: 10/12/18 07:19 Dose: 10 mg Ondansetron HCl (Zofran Inj*) 4 mg IV Q4H PRN PRN Reason: NAUSEA/VOMITING Last Admin: 10/12/18 03:24 Dose: 4 mg Pantoprazole Sodium (Protonix Iv*) 40 mg IV DAILY [facility] Last Admin: 10/12/18 09:58 Dose: 40 mg Vital Signs - 8 hr 10/12/18 10/12/18 10:35 15:45 Temperature 98.4 F 98.4 F Pulse Rate 73 75 Respiratory 16 18 Rate Blood Pressure 130/59 151/68 (mmHg) O2 Sat by Pulse 98 99 Oximetry Oxygen Devices in Use Now: None Appearance: Patient is a 72yo female who appears stated age and is sitting in the bed in [facility]. Eyes: No Scleral Icterus, PERRLA Ears/Nose/Mouth/Throat: NL Teeth, Lips, Gums, Clear Oropharnyx, Mucous Membranes Moist Neck: NL Appearance and Movements; NL JVP, Trachea Midline Respiratory: Symmetrical Chest Expansion and Respiratory Effort, Clear to Auscultation Cardiovascular: NL Sounds; No Murmurs; No JVD, RRR, No Edema Abdominal: No Hepatosplenomegaly, - - Hypoactive bowel sounds. Lymphatic: No Cervical Adenopathy Extremities: No Edema, No Clubbing, Cyanosis Skin: No Rash or Ulcers, No Nodules or Sclerosis Neurological: Alert and Oriented x 3, NL Sensation, NL Muscle Strength and Tone , - - CN II-XII intact. Result Diagrams: 10/12/18 06:59 10/12/18 06:59 Additional Lab and Data: Lab Results Assess/Plan/Problems-Billing Assessment: Patient is a 72yo female with a PMH for ovarian tumor, SBO, HTN, here with recurrent SBO. Patient is passing gas and improving. - Patient Problems (1) SBO (small bowel obstruction) Current Visit: No Status: Acute Code(s): K56.69 - OTHER INTESTINAL OBSTRUCTION * DO NOT USE * SNOMED Code(s): 164890752 Comment: - Improving, conservative management - Nausea improved, Advance to clears. - Appreciate Surgical consult - Fluids and zofran. (2) Liver mass Current Visit: Yes Status: Acute Code(s): R16.0 - HEPATOMEGALY, NOT ELSEWHERE CLASSIFIED SNOMED Code(s): 670890835 Comment: - New diagnosis, possible metastatic disease, biopsy pending - History rare ovarian tumor. - Appreciate Oncology input. (3) GERD (gastroesophageal reflux disease) Current Visit: No Status: Acute Code(s): K21.9 - GASTRO-ESOPHAGEAL REFLUX DISEASE WITHOUT ESOPHAGITIS SNOMED Code(s): 882081521 Comment: - Continue pantoprazole IV while NPO, change to PO tomorrow if tolerating PO (4) Hypertension Current Visit: No Status: Acute Code(s): I10 - ESSENTIAL (PRIMARY) HYPERTENSION SNOMED Code(s): 55112947 Comment: - PRN hydralazine while NPO - Generally elevated BP, resume amlodipine when able. (5) DVT prophylaxis Current Visit: No Status: Acute Code(s): TSQ2790 - SNOMED Code(s): 494446628 Comment: - Heparin SQ (6) Full code status Current Visit: No Status: Acute Code(s): Z78.9 - OTHER SPECIFIED HEALTH STATUS SNOMED Code(s): 046727451 Status and Disposition: Inpatient, slow improvement, discharge when tolerating diet.
[2018-10-12] MEDS ORDERED: Magnesium Sulfate 2 GM IV* 2 GM/50 ML BAG IVPB ONE (18:00)
[2018-10-13] MEDS: NS 0.9% 1000 ML** 1,000 ML IV SCH ×4 (00:30→21:15)
[2018-10-13] MEDS: Ondansetron INJ* 2 MG/ML VIAL IV PRN ×2 (01:29→07:00)
[2018-10-13 06:33] LABS: ABS Eosinophils 0.1 10^3/ul (0-0.6); ABS Lymphocytes 1.2 10^3/ul (1.0-4.8); ABS Monocytes 0.7 10^3/ul (0-0.8); ABS Neutrophils 9.5 10^3/ul (1.5-7.7); Eosinophil % 1.1 %; Hematocrit 32 % (35-47); Hemoglobin 10.8 g/dL (12.0-16.0); Lymphocyte % 10.7 %; Mean Corpuscular HGB Conc 34 g/dL (31-36); Mean Corpuscular Hemoglobin 28 pg (27-31); Mean Corpuscular Volume 83 fL (80-97); Mean Platelet Volume 8.9 fL (7.4-10.4); Platelet Count 315 10^3/uL (150-450); Red Blood Count 3.86 10^6 /uL (3.70-4.87); Red Cell Distribution Width 14 % (10-15); White Blood Count 11.6 10^3/uL (3.5-10.8)
[2018-10-13 06:59] LABS: BUN/Creatinine Ratio 10.9 (8-20); Calcium 7.9 mg/dL (8.6-10.3); EGFR African American 130.7 (>60); Magnesium 1.8 mg/dL (1.9-2.7); Potassium 3.3 mmol/L (3.5-5.0)
[2018-10-13] MEDS: Heparin VIAL(*) 5000 UNITS/ML VIAL (FIVE THOUSAND) SUBCUT SCH ×3 (07:00→21:12)
[2018-10-13] MEDS: Pantoprazole IV* 40 MG IV SCH (07:57)
--- NOTE | 2018-10-13 13:49 | PN ---
Subjective Date of Service: 10/13/18 Interval History: Patient had recurrent nausea overnight, but not as severe as the night before. Patient denies F/C, N/V, abdominal pain, CP, SOB, dizziness, or other pain. Patient is very apprehensive about advancing diet and would like to take it slow given previous surgeries. Family History: Unchanged from Admission Social History: Unchanged from Admission Past Medical History: Unchanged from Admission Objective Active Medications: Heparin Sodium (Porcine) (Heparin Vial(*)) 5,000 units SUBCUT Q8HR [facility], 1928–1983 Last Admin: 10/13/18 07:00 Dose: 5,000 units Hydralazine HCl (Apresoline Iv*) 5 mg IV SLOW PU Q6H PRN PRN Reason: SBP>180 Sodium Chloride (Ns 0.9% 1000 Ml) 1,000 mls @ 125 mls/hr IV PER RATE [facility], [facility]–1983 Last Admin: 10/13/18 07:56 Dose: 125 mls/hr Metoclopramide HCl (Reglan Iv*) 10 mg IV Q6H PRN PRN Reason: NAUSEA/VOMITING Last Admin: 10/12/18 07:19 Dose: 10 mg Ondansetron HCl (Zofran Inj*) 4 mg IV Q4H PRN PRN Reason: NAUSEA/VOMITING Last Admin: 10/13/18 07:00 Dose: 4 mg Pantoprazole Sodium (Protonix Iv*) 40 mg IV DAILY [facility], [facility] Last Admin: 10/13/18 07:57 Dose: 40 mg Vital Signs - 8 hr 10/13/18 10/13/18 10/13/18 07:15 09:00 11:00 Temperature 98.6 F 98.8 F Pulse Rate 79 77 Respiratory 16 18 16 Rate Blood Pressure 155/64 155/65 (mmHg) O2 Sat by Pulse 98 97 Oximetry Oxygen Devices in Use Now: None Appearance: Patient is a 72yo female who appears stated age and is sitting in the bed in [facility]. Eyes: No Scleral Icterus, PERRLA Ears/Nose/Mouth/Throat: NL Teeth, Lips, Gums, Clear Oropharnyx, Mucous Membranes Moist Neck: NL Appearance and Movements; NL JVP, Trachea Midline Respiratory: Symmetrical Chest Expansion and Respiratory Effort, Clear to Auscultation Cardiovascular: NL Sounds; No Murmurs; No JVD, RRR, No Edema Abdominal: No Hepatosplenomegaly, - - Distended similar to previous exam. Lymphatic: No Cervical Adenopathy Extremities: No Edema, No Clubbing, Cyanosis Skin: No Rash or Ulcers, No Nodules or Sclerosis Neurological: Alert and Oriented x 3, NL Sensation, NL Muscle Strength and Tone , - - CN II-XII intact. Result Diagrams: 10/13/18 06:09 10/13/18 06:09 Additional Lab and Data: Lab Results Assess/Plan/Problems-Billing Assessment: Patient is a 72yo female with a PMH for ovarian tumor, SBO, HTN, here with recurrent SBO. Patient is passing gas and improving. - Patient Problems (1) SBO (small bowel obstruction) Current Visit: No Status: Acute Code(s): K56.69 - OTHER INTESTINAL OBSTRUCTION * DO NOT USE * SNOMED Code(s): 997725660 Comment: - Improving, conservative management - Nausea improved, Advance to clears, advance diet again tomorrow if patient feels up to it. - Appreciate Surgical consult - Decrease fluids and continue zofran. (2) Liver mass Current Visit: Yes Status: Acute Code(s): R16.0 - HEPATOMEGALY, NOT ELSEWHERE CLASSIFIED SNOMED Code(s): 566018587 Comment: - New diagnosis - Pathology benign, follow repeat imaging - History rare ovarian tumor. - Appreciate Oncology input. (3) GERD (gastroesophageal reflux disease) Current Visit: No Status: Acute Code(s): K21.9 - GASTRO-ESOPHAGEAL REFLUX DISEASE WITHOUT ESOPHAGITIS SNOMED Code(s): 158058162 Comment: - Restart PO pantoprazole. (4) Hypertension Current Visit: No Status: Acute Code(s): I10 - ESSENTIAL (PRIMARY) HYPERTENSION SNOMED Code(s): 40810823 Comment: - Resume Amlodipine. - Hold Irbesartan (5) DVT prophylaxis Current Visit: No Status: Acute Code(s): BLY2772 - SNOMED Code(s): 229448663 Comment: - Heparin SQ (6) Full code status Current Visit: No Status: Acute Code(s): Z78.9 - OTHER SPECIFIED HEALTH STATUS SNOMED Code(s): 436773200 Status and Disposition: Inpatient, slow improvement, discharge when tolerating diet, possible D/C tomorrow.
--- NOTE | 2018-10-13 14:28 | PN ---
Progress Note - Progress Note Date of Service: 10/12/18 Note: Surgery Progress (late entry; patient seen 10/12/18) S: feeling somewhat better: no sig pain; no vomiting, though still a bit nauseated. Had BM and passing some flatus. O: afeb VSS Gen: appears comfortable, NAD Abd: +BS; nontender to palp A: SBO, resolving P: patient is hesitant to take much po yet; wants to go slow, which is perfectly appropriate; cont med mgmt Update 10/13: taking clears well; still slight nausea; anticipating add'l bowel activity today; will sign off; recall prn.
[2018-10-13] MEDS: amLODIPine TAB* 5 MG PO SCH (14:29)
[2018-10-14] MEDS: Heparin VIAL(*) 5000 UNITS/ML VIAL (FIVE THOUSAND) SUBCUT SCH ×3 (05:46→21:05)
[2018-10-14 08:21] LABS: BUN/Creatinine Ratio 5.2 (8-20); Calcium 8.2 mg/dL (8.6-10.3); EGFR Non-African American 101.6 (>60); Magnesium 1.7 mg/dL (1.9-2.7); Potassium 3.4 mmol/L (3.5-5.0)
[2018-10-14] MEDS ORDERED: Magnesium Sulfate IV* 3 GM in NS 0.9% 100 ML* 100 ML IVPB ONE (08:57)
[2018-10-14] MEDS: amLODIPine TAB* 5 MG PO SCH (08:59)
[2018-10-14] MEDS: Pantoprazole TAB * 40 MG TAB PO SCH (08:59)
[2018-10-14] MEDS ORDERED: NS 0.9% 100 ML* 0 ML ONE (09:27)
[2018-10-14] MEDS: KCL 20 MEQ/100 ML IVPREMIX* 20 MEQ/100 ML BAG IV SCH ×2 (09:33→14:07)
--- NOTE | 2018-10-14 14:42 | PN ---
Subjective Date of Service: 10/14/18 Interval History: Patient complains only of slight queasiness which resolved by itself in AM. Patient denies abdominal pain, obstipation, CP, SOB, dizziness, or other pain. Patient thought she was ready to advance diet and is tolerating full liquids without difficulty. Family History: Unchanged from Admission Social History: Unchanged from Admission Past Medical History: Unchanged from Admission Objective Active Medications: Amlodipine Besylate (Norvasc Tab*) 7.5 mg PO QAM [facility] Last Admin: 10/14/18 08:59 Dose: 7.5 mg Heparin Sodium (Porcine) (Heparin Vial(*)) 5,000 units SUBCUT Q8HR [facility] Last Admin: 10/14/18 14:07 Dose: 5,000 units Sodium Chloride (Ns 0.9% 1000 Ml) 1,000 mls @ 50 mls/hr IV PER RATE [facility] Last Admin: 10/13/18 21:15 Dose: 50 mls/hr Metoclopramide HCl (Reglan Iv*) 10 mg IV Q6H PRN PRN Reason: NAUSEA/VOMITING Last Admin: 10/12/18 07:19 Dose: 10 mg Ondansetron HCl (Zofran Inj*) 4 mg IV Q4H PRN PRN Reason: NAUSEA/VOMITING Last Admin: 10/13/18 07:00 Dose: 4 mg Pantoprazole Sodium (Protonix Tab*) 40 mg PO DAILY [facility] Last Admin: 10/14/18 08:59 Dose: 40 mg Vital Signs - 8 hr 10/14/18 10/14/18 10/14/18 07:15 08:00 11:15 Temperature 98.6 F Pulse Rate 78 81 Respiratory 18 16 Rate Blood Pressure 159/64 152/70 (mmHg) O2 Sat by Pulse 98 98 Oximetry Oxygen Devices in Use Now: None Appearance: Patient is a 72yo female who appears stated age and is sitting in the bed in [facility]. Eyes: No Scleral Icterus, PERRLA Ears/Nose/Mouth/Throat: NL Teeth, Lips, Gums, Clear Oropharnyx, Mucous Membranes Moist Neck: NL Appearance and Movements; NL JVP, Trachea Midline Respiratory: Symmetrical Chest Expansion and Respiratory Effort, Clear to Auscultation Cardiovascular: NL Sounds; No Murmurs; No JVD, RRR, No Edema Abdominal: NL Sounds; No Tenderness; No Distention, No Hepatosplenomegaly, - - Hypoactive BS. Lymphatic: No Cervical Adenopathy Extremities: No Edema, No Clubbing, Cyanosis Skin: No Rash or Ulcers, No Nodules or Sclerosis Neurological: Alert and Oriented x 3, NL Sensation, NL Muscle Strength and Tone , - - CN II-XII intact. Result Diagrams: 10/13/18 06:09 10/14/18 07:44 Additional Lab and Data: Lab Results Assess/Plan/Problems-Billing Assessment: Patient is a 72yo female with a PMH for ovarian tumor, SBO, HTN, here with recurrent SBO. Patient is passing gas and improving. - Patient Problems (1) SBO (small bowel obstruction) Current Visit: No Status: Acute Code(s): K56.69 - OTHER INTESTINAL OBSTRUCTION * DO NOT USE * SNOMED Code(s): 360394482 Comment: - Improving, conservative management - Nausea improved, Advance to full liquid, advance diet again tomorrow if patient feels up to it. - Appreciate Surgical consult - Stop fluids and continue zofran. (2) Liver mass Current Visit: Yes Status: Acute Code(s): R16.0 - HEPATOMEGALY, NOT ELSEWHERE CLASSIFIED SNOMED Code(s): 343758255 Comment: - New diagnosis - Pathology benign, follow repeat imaging - History rare ovarian tumor. - Appreciate Oncology input. (3) GERD (gastroesophageal reflux disease) Current Visit: No Status: Acute Code(s): K21.9 - GASTRO-ESOPHAGEAL REFLUX DISEASE WITHOUT ESOPHAGITIS SNOMED Code(s): 325176348 Comment: - Restart PO pantoprazole. (4) Hypertension Current Visit: No Status: Acute Code(s): I10 - ESSENTIAL (PRIMARY) HYPERTENSION SNOMED Code(s): 58306128 Comment: - Resume Amlodipine. - Hold Irbesartan (5) DVT prophylaxis Current Visit: No Status: Acute Code(s): ZNN2054 - SNOMED Code(s): 634779714 Comment: - Heparin SQ (6) Full code status Current Visit: No Status: Acute Code(s): Z78.9 - OTHER SPECIFIED HEALTH STATUS SNOMED Code(s): 302878368 Status and Disposition: Inpatient, slow improvement, discharge when tolerating diet, possible D/C tomorrow.
[2018-10-15] MEDS: Heparin VIAL(*) 5000 UNITS/ML VIAL (FIVE THOUSAND) SUBCUT SCH ×2 (05:48→13:52)
[2018-10-15] MEDS: amLODIPine TAB* 5 MG PO SCH (07:22)
[2018-10-15] MEDS: Pantoprazole TAB * 40 MG TAB PO SCH (07:23)
[2018-10-15 07:52] LABS: ABS Eosinophils 0.2 10^3/ul (0-0.6); ABS Lymphocytes 1.6 10^3/ul (1.0-4.8); ABS Monocytes 0.9 10^3/ul (0-0.8); ABS Neutrophils 8.7 10^3/ul (1.5-7.7); Eosinophil % 1.6 %; Hematocrit 34 % (35-47); Hemoglobin 11.5 g/dL (12.0-16.0); Lymphocyte % 14.2 %; Mean Corpuscular HGB Conc 34 g/dL (31-36); Mean Corpuscular Hemoglobin 28 pg (27-31); Mean Corpuscular Volume 81 fL (80-97); Mean Platelet Volume 9.2 fL (7.4-10.4); Platelet Count 357 10^3/uL (150-450); Red Blood Count 4.15 10^6 /uL (3.70-4.87); Red Cell Distribution Width 14 % (10-15); White Blood Count 11.4 10^3/uL (3.5-10.8)
[2018-10-15 08:00] LABS: BUN/Creatinine Ratio 6.3 (8-20); Calcium 7.8 mg/dL (8.6-10.3); EGFR African American 111.8 (>60); EGFR Non-African American 92.4 (>60); Potassium 3.3 mmol/L (3.5-5.0)
[2018-10-15 11:53] VITALS: BP 130/70
[2018-10-16] MEDS ORDERED: Oxybutynin TAB* 5 MG PO SCH (09:00)
[2018-10-16] MEDS ORDERED: Losartan TAB* 25 MG PO SCH (09:00)
[2018-10-16] MEDS ORDERED: Magnesium Oxide TAB* 400 MG PO SCH (09:00)
--- NOTE | 2018-10-17 01:01 | DS ---
CC: Dr. Roya Fields; Dr. Dada Holcomb * DISCHARGE SUMMARY: DATE OF ADMISSION: 10/10/18 DATE OF DISCHARGE: 10/15/18 PRIMARY CARE PROVIDER: Dr. Roya Fields. MY ATTENDING WHILE IN THE HOSPITAL: Dr. Lico Johnson.* (DICTATED BY ALLYSON HNAD) PRIMARY DISCHARGE DIAGNOSES: 1. Small bowel obstruction. 2. Liver mass, unclear cause. SECONDARY DISCHARGE DIAGNOSES: 1. History of ovarian carcinoma. 2. Hypertension. 3. Gastroesophageal reflux disease. 4. History of irritable bowel syndrome. STUDIES DONE WHILE IN THE HOSPITAL: Outpatient abdomen and pelvis CT read as large mass of the left lobe of liver, suspicious for metastatic disease; dilated stomach and proximal small bowel consistent with small bowel obstruction , suggested zone of transition at the anastomosis in the pelvis from previous surgeries; serosal lesions are not excluded. Right adrenal lesion, unchanged from previous exam. Liver biopsy read as negative for malignant cells, macrophages and serous fluid. MEDICATIONS AT DISCHARGE: 1. Detrol 4 mg p.o. daily. 2. Amlodipine 7.5 mg p.o. daily. 3. Omeprazole 20 to 40 mg p.o. daily. 4. Avapro 300 mg p.o. daily. 5. Centrum Silver multivitamin 1 tab p.o. daily. 6. Barlow-3 fatty acid 1000 mg p.o. daily. 7. Magnesium oxide 400 mg p.o. daily. 8. Lactobacillus acidophilus 1 tablet p.o. daily. New medications at discharge: None. Medication discontinued at discharge: None. HOSPITAL COURSE: This is a brief summary of the patient's presentation. For more details, please see history and physical from Di Diallo NP, on 10/10/18. In brief, the patient is a 72-year-old female with past medical history significant for above, who presents to the emergency department with nausea, vomiting, and abdominal pain. The patient has a history of several small bowel obstructions and felt like this was consistent with previous presentations, both times before she had had surgery to fix these. The patient, in the emergency department, had a CT abdomen and pelvis, as above. The patient was admitted to the hospital. The patient was seen in consultation by Dr. Dada Holcomb of Oncology who assessed the liver mass and recommended biopsy, which was done and read as benign, as above. The patient initially has no appetite and remained n.p.o. with fluids running. The patient had a slightly elevated white blood cell count and this trended down through her hospitalization. The patient had some hypokalemia, hypomagnesemia, and hyperchloremic metabolic acidosis, likely related to IV fluid administration, that resolved by the end of her hospitalization. The patient was able to have her diet slowly advanced per her comfort level and on 10/15/18 the patient was able to tolerate a soft, low-residue diet, and was stable enough for discharge on 10/15/18. PHYSICAL EXAM ON THE DAY OF DISCHARGE: General: The patient is 72-year-old female who appears stated age, sitting comfortably in bed, in no acute distress. Vital Signs: At the time of discharge, temperature 98.6, pulse rate 78, respiratory rate 16, oxygen saturation 97% on room air, blood pressure 130/ 70. HEENT: Head normocephalic, atraumatic. Sclerae anicteric. No conjunctival injection. Nasal mucosa is moist. Oral mucosa moist. No pharyngeal erythema, discharge or exudate. Neck: Supple, nontender. No lymphadenopathy. No carotid bruit auscultated. No JVD. Cardiac: Regular rate and rhythm. No clicks, murmurs, gallops, or rubs. Pulses 2+ in the bilateral dorsalis pedis, posterior tibialis, and radial areas. Neuro: Cranial nerves II through XII are grossly intact. No focal deficits. Alert and oriented x3. Psychiatric: Pleasant and cooperative. DISCHARGE PLAN BY PROBLEM: 1. Small bowel obstruction: This is resolved at this time with conservative measures. The patient is tolerating a low-residue diet, which she should advance to a regular diet, as tolerated. There have been no changes to patient' s medications. If her small bowel obstruction recurs, it may be considered to take the patient off of Detrol. Otherwise, the patient should stay active, drink plenty of water, and avoid foods she knows are difficult for her to digest. 2. Liver mass: The patient's liver mass is of unclear etiology, though there are no malignant cells seen on biopsy. The patient will have a followup surveillance CT in December at her followup with her oncologist. The patient is currently asymptomatic from this and has no LFT abnormalities. Further management per Oncology. 3. Hypertension: Continue irbesartan and amlodipine. The patient was normotensive after resumption of her home meds in the hospital. DISPOSITION: Home. CONDITION: Stable. TIME SPENT: Approximately 45 minutes were spent on the discharge of this patient, 30 of which were spent [id number] with the patient, obtaining history and physical and discussing the treatment plan. ALLYSON HAND [id number]/CPS #: [id number] SHERINE
== END 2018-10-15 15:00 | disposition home or self-care (01) | DRG 389 ==
LOC: ED 13:04 → MED 17:13
PROVIDERS: ADMIT Internal Medicine; ATTEND Internal Medicine
PROC: 0FD23ZX Extraction of Left Lobe Liver, Percutaneous Approach, Diagnostic (ICD-10-PCS; principal; 2018-10-11)
DX: K56.609 Unspecified intestinal obstruction, unspecified as to partial versus complete obstruction (principal); E87.2 Acidosis; K21.9 Gastro-esophageal reflux disease without esophagitis; D72.829 Elevated white blood cell count, unspecified; R16.0 Hepatomegaly, not elsewhere classified; I10 Essential (primary) hypertension; E87.6 Hypokalemia; E83.42 Hypomagnesemia; Z85.43 Personal history of malignant neoplasm of ovary; Z85.038 Personal history of other malignant neoplasm of large intestine; Z79.899 Other long term (current) drug therapy; Z88.8 Allergy status to other drugs, medicaments and biological substances; Z91.048 Other nonmedicinal substance allergy status; Z80.41 Family history of malignant neoplasm of ovary; Z80.1 Family history of malignant neoplasm of trachea, bronchus and lung; Z87.19 Personal history of other diseases of the digestive system
CPT/HCPCS: 36415; 47000; 74177; 76942; 80048; 80053; 80074; 81003; 81015; 83735; 85025; 86140; 88172; 88173; 88177; 88305; 99212; 99284; A9270-GY; G0463; J1644; J2405; J2765; J3475; J3480; Q9967

== ENCOUNTER 2023-09-07 19:21 | Inpatient (IN) ==
[2023-09-07 21:34] LABS: Hematocrit 40.7 % (35-45); Hemoglobin 13.6 g/dL (11.5-14.3); Mean Corpuscular Hemoglobin 28.6 pg (27-33); Mean Corpuscular Hgb Conc 33.4 g/dL (31-36); Mean Corpuscular Volume 85.7 fL (80-97); Mean Platelet Volume 7.5 fL (7.5-11.2); Platelet Count 283 10^3/uL (150-450); Red Blood Count 4.75 10^6/uL (3.63-4.92); Red Cell Distribution Width 13.6 % (12-17); White Blood Count 20.3 10^3/uL (3.8-11.8)
[2023-09-07 22:03] LABS: ABS Basophils 0.1 10^3/uL (0.0-0.1); ABS Lymphocytes 0.6 10^3/uL (1.0-4.8); ABS Monocytes 1.1 10^3/uL (0.0-0.9); ABS Neutrophils 18.5 10^3/uL (1.5-7.6); ABS Nucleated RBC 0.01 10^3/ul
[2023-09-07 22:06] LABS: Albumin/Globulin Ratio 1.5 (1-3); Calcium 9.2 mg/dL (8.6-10.3); Creatinine, Serum 1.27 mg/dL (0.51-0.95); Globulin 2.7 g/dL (2-4); Potassium 4.1 mmol/L (3.5-5.0); Total Bilirubin 0.5 mg/dL (0.2-1.0); Total Protein 6.7 g/dL (6.4-8.9)
[2023-09-07] MEDS: Iodixanol (CONTRAST) 320 MG/ML 100 ML SDV IV ONE (22:50)
[2023-09-07] MEDS: Piperacillin/Tazobac 3.375 BAG 3.375 GM/100 ML BAG IV ONE (23:02)
[2023-09-07] MEDS: Calcium Carb (TUMS) 500 mg CHEW TAB PO ONE (23:02)
[2023-09-08] MEDS ORDERED: Polyethylene Glycol 3350 17 GM PACKET PO PRN (01:28)
[2023-09-08] MEDS: Iodixanol (CONTRAST) 320 MG/ML 100 ML SDV IV ONE (01:59)
[2023-09-08] MEDS ORDERED: Zosyn per Pharmacy NOTE FOLLOW UP SCH (02:00)
[2023-09-08] MEDS: Heparin 5000 UNITS/ML 1 mL VIAL IV SCH (02:35)
[2023-09-08] MEDS: Heparin DRIP 25,000 UNITS BAG 25,000 UNITS/250 ML BAG IV SCH (02:38)
[2023-09-08] MEDS: NS 0.9% 1000 ml BAG 1,000 ML IV ONE (02:43)
[2023-09-08] MEDS: ZOSYN 3.375 GM Q8H per EXTENDED INFUSION IV SCH ×2 (02:43→23:26)
[2023-09-08] MEDS ORDERED: Calcium Carb (TUMS) 500 mg CHEW TAB PO PRN (05:34)
[2023-09-08 06:04] LABS: Hemoglobin 13.1 g/dL (11.5-14.3); Mean Corpuscular Hemoglobin 27.9 pg (27-33); Mean Corpuscular Hgb Conc 32.8 g/dL (31-36); Mean Corpuscular Volume 85.2 fL (80-97); Mean Platelet Volume 8.6 fL (7.5-11.2); Platelet Count 330 10^3/uL (150-450); Red Cell Distribution Width 13.7 % (12-17); White Blood Count 20.2 10^3/uL (3.8-11.8)
[2023-09-08 06:47] LABS: Calcium 8.7 mg/dL (8.6-10.3); Creatinine, Serum 1.17 mg/dL (0.51-0.95); Potassium 3.7 mmol/L (3.5-5.0); eGFR CKD-EPI 47.5 (>60)
[2023-09-08] MEDS: Ondansetron 4 mg VIAL 2 MG/ML 2 ml VIAL IV ONE (07:22)
[2023-09-08 07:29] LABS: ABS Basophils 0.1 10^3/uL (0.0-0.1); ABS Lymphocytes 1.6 10^3/uL (1.0-4.8); ABS Monocytes 1.8 10^3/uL (0.0-0.9); ABS Neutrophils 16.7 10^3/uL (1.5-7.6); ABS Nucleated RBC 0.01 10^3/ul; Eosinophil % 0.1 %
[2023-09-08] MEDS: FEXOFENADINE 60 MG PO SCH (08:37)
[2023-09-08] MEDS: NF: Estradiol VAG CM (NF) 1 APPLIC TUBE VAGINAL SCH (08:37)
[2023-09-08] MEDS: Pantoprazole VIAL 40 MG VIAL IV SCH (09:55)
[2023-09-08] MEDS: Sulfur Hexaflouride MICROSPHR 25 MG VIAL IV ONE (11:27)
[2023-09-08] MEDS: CMCS: Mirabegron 25 mg ER TAB (NF) PO SCH (16:32)
[2023-09-08] MEDS: Gaviscon CHEW TAB PO ONE (16:32)
[2023-09-08] MEDS: Ondansetron 4 mg VIAL 2 MG/ML 2 ml VIAL IV PRN (20:08)
[2023-09-08] MEDS ORDERED: Prochlorperazine 5 mg/ml 2 ml VIAL (10 mg) IV PRN (23:39)
[2023-09-09] MEDS: Lactated Ringers 1000 ml BAG 1,000 ML IV SCH ×2 (04:16)
[2023-09-09 05:54] LABS: Hematocrit 35.6 % (35-45); Hemoglobin 11.7 g/dL (11.5-14.3); Mean Corpuscular Hemoglobin 27.7 pg (27-33); Mean Corpuscular Hgb Conc 32.8 g/dL (31-36); Mean Corpuscular Volume 84.5 fL (80-97); Mean Platelet Volume 8.4 fL (7.5-11.2); Platelet Count 276 10^3/uL (150-450); Red Blood Count 4.22 10^6/uL (3.63-4.92); Red Cell Distribution Width 13.5 % (12-17); White Blood Count 19.6 10^3/uL (3.8-11.8)
[2023-09-09 05:59] LABS: ABS Lymphocytes 1.4 10^3/uL (1.0-4.8); ABS Monocytes 1.7 10^3/uL (0.0-0.9); ABS Neutrophils 16.5 10^3/uL (1.5-7.6); Lymphocyte % 6.9 %
[2023-09-09 07:02] LABS: Calcium 8.3 mg/dL (8.6-10.3); Creatinine, Serum 1.31 mg/dL (0.51-0.95); Potassium 3.4 mmol/L (3.5-5.0); eGFR CKD-EPI 41.4 (>60)
[2023-09-09 11:00] LABS: Urine Appearance Turbid; Urine Bilirubin Negative (Negative); Urine Blood 2+ (Negative); Urine Color Yellow; Urine Glucose Negative (Negative); Urine Ketones 1+ (Negative); Urine Nitrite Negative (Negative); Urine Protein Trace (Negative); Urine Specific Gravity 1.031 (1.002-1.030); Urine Urobilinogen Negative (Negative); Urine pH 5.5 (5.0-8.0)
[2023-09-09 11:06] LABS: Urine Amorphous Crystals Present /HPF (Absent); Urine Bacteria Absent /HPF (Absent); Urine Red Blood Cell 3+(>10/hpf) /HPF (0-Trace); Urine Squamous Epithelial Cell Present /HPF (Absent); Urine Uric Acid Crystals Present /HPF (Absent); Urine White Blood Cell Trace(0-5/hpf) /HPF (0-Trace)
[2023-09-09 11:10] LABS: Magnesium 1.8 mg/dL (1.9-2.7)
[2023-09-09] MEDS: Potassium Chloride LIQUID 20 MEQ/15 ML LIQUID PO ONE (11:18)
[2023-09-09] MEDS: Magnesium Sulfate IV 1GM/100ML 1 GM/100 ML BAG IV ONE (12:15)
[2023-09-09] MEDS: KCL 20 MEQ/100 ML IVPREMIX 20 MEQ/100 ML BAG IV ONE (12:48)
[2023-09-09] MEDS: NS 0.9% 1000 ml BAG 1,000 ML IV SCH (15:10)
[2023-09-09 22:34] LABS: Body Fluid Total Nucleated 523 /mcL
[2023-09-09 22:36] LABS: Body Fluid Appearance Clear; Body Fluid Color Yellow; Body Fluid Source Peritonial Fluid
[2023-09-10 00:02] LABS: Body Fluid Mono 6 %; Body Fluid Other Cells 1; Body Fluid Total Cells Counted 200
[2023-09-10 06:51] LABS: ABS Basophils 0.1 10^3/uL (0.0-0.1); ABS Eosinophils 0.1 10^3/uL (0.0-0.5); ABS Lymphocytes 1.8 10^3/uL (1.0-4.8); ABS Monocytes 0.9 10^3/uL (0.0-0.9); ABS Neutrophils 7.5 10^3/uL (1.5-7.6); Eosinophil % 0.6 %; Hematocrit 32.2 % (35-45); Lymphocyte % 17.4 %; Mean Corpuscular Hemoglobin 28.9 pg (27-33); Mean Corpuscular Volume 85.2 fL (80-97); Mean Platelet Volume 8.3 fL (7.5-11.2); Platelet Count 230 10^3/uL (150-450); Red Blood Count 3.78 10^6/uL (3.63-4.92); Red Cell Distribution Width 13.5 % (12-17); White Blood Count 10.3 10^3/uL (3.8-11.8)
[2023-09-10 07:35] LABS: Calcium 7.7 mg/dL (8.6-10.3); Creatinine, Serum 0.99 mg/dL (0.51-0.95); Potassium 3.3 mmol/L (3.5-5.0)
[2023-09-10] MEDS: KCL 20 MEQ/100 ML IVPREMIX 20 MEQ/100 ML BAG IV ONE (10:16)
[2023-09-11 06:04] LABS: Hematocrit 31.6 % (35-45); Hemoglobin 10.5 g/dL (11.5-14.3); Mean Corpuscular Hemoglobin 28.4 pg (27-33); Mean Corpuscular Hgb Conc 33.3 g/dL (31-36); Mean Corpuscular Volume 85.1 fL (80-97); Mean Platelet Volume 8.4 fL (7.5-11.2); Platelet Count 251 10^3/uL (150-450); Red Blood Count 3.72 10^6/uL (3.63-4.92); Red Cell Distribution Width 13.6 % (12-17); White Blood Count 9.4 10^3/uL (3.8-11.8)
[2023-09-11 06:39] LABS: Calcium 7.7 mg/dL (8.6-10.3); Creatinine, Serum 0.66 mg/dL (0.51-0.95); Magnesium 1.7 mg/dL (1.9-2.7); Potassium 3.5 mmol/L (3.5-5.0); eGFR CKD-EPI 89.2 (>60)
[2023-09-11 08:39] LABS: ABS Eosinophils 0.1 10^3/uL (0.0-0.5); ABS Lymphocytes 1.6 10^3/uL (1.0-4.8); ABS Monocytes 0.8 10^3/uL (0.0-0.9); ABS Neutrophils 6.8 10^3/uL (1.5-7.6); ABS Nucleated RBC 0.01 10^3/ul; Lymphocyte % 17.2 %; Nucleated Red Blood Cells % 0.1 %/100WBC (0.0-0.8)
[2023-09-11] MEDS: Magnesium Sulfate 2 gm BAG 2 GM/50 ML BAG IVPB ONE (09:38)
[2023-09-12 05:53] LABS: Hematocrit 31.8 % (35-45); Hemoglobin 10.7 g/dL (11.5-14.3); Mean Corpuscular Hemoglobin 28.6 pg (27-33); Mean Corpuscular Hgb Conc 33.6 g/dL (31-36); Mean Platelet Volume 8.2 fL (7.5-11.2); Platelet Count 286 10^3/uL (150-450); Red Blood Count 3.74 10^6/uL (3.63-4.92); Red Cell Distribution Width 13.5 % (12-17); White Blood Count 9.6 10^3/uL (3.8-11.8)
[2023-09-12 06:18] LABS: Creatinine, Serum 0.7 mg/dL (0.51-0.95); eGFR CKD-EPI 87.9 (>60)
[2023-09-12 07:48] LABS: ABS Eosinophils 0.2 10^3/uL (0.0-0.5); ABS Lymphocytes 1.5 10^3/uL (1.0-4.8); ABS Monocytes 0.8 10^3/uL (0.0-0.9); ABS Neutrophils 7.2 10^3/uL (1.5-7.6); Eosinophil % 1.8 %; Lymphocyte % 15.3 %
[2023-09-12 09:49] VITALS: BP 147/77
== END 2023-09-12 14:21 | disposition home or self-care (01) | DRG 871 ==
LOC: EDHOLD 19:21 → ED 19:21 → MEDTELE 09-08 14:29 → SUATTDRO 09-10 12:41
PROVIDERS: ADMIT Student in an Organized Health Care Education/Training Program; ATTEND Internal Medicine